=== PATIENT | male | born 1990 | race Caucasian/White ===

== ENCOUNTER 2022-09-03 21:21 | Emergency (ER) | payer SELFPAY ==
[~2022-09-03] VITALS: Ht 165.1 cm; Wt 68.0 kg
[2022-09-03] MEDS ORDERED: KETOROLAC TROMETHAMINE INJ 30 MG/ML VIAL IV ONE (21:30)
[2022-09-03] MEDS ORDERED: MORPHINE SULFATE INJ 2 MG/ML DISP.SYRIN IV ONE (21:30)
--- NOTE | 2022-09-03 21:30 | NUR ---
[id number] FROM [facility] C/O R TIBFIB DEFORMITY FROM [facility]. 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
[2022-09-03] MEDS ORDERED: MORPHINE SULFATE INJ 4 MG/ML DISP.SYRIN ONE (21:31)
[2022-09-03] MEDS ORDERED: KETOROLAC TROMETHAMINE INJ 30 MG/ML VIAL ONE (21:43)
[2022-09-03 22:05] LABS: BASOPHILS % (AUTO) 0.3 % (0.0-2.0); EOSINOPHILS % (AUTO) 0.4 % (0.0-6.0); HEMATOCRIT 45 % (39-51); HEMOGLOBIN 14.9 g/dL (13.5-17.5); LYMPHOCYTES # (AUTO) 1.3 K/uL (0.8-4.8); LYMPHOCYTES % (AUTO) 10.4 % (20.0-44.0); MEAN CORPUSCULAR HGB CONC 33 g/dl (31.0-36.0); MEAN CORPUSCULAR VOLUME 94 fL (80-96); MONOCYTES # (AUTO) 0.6 K/uL (0.1-1.30); MONOCYTES % (AUTO) 4.6 % (2.0-12.0); NEUTROPHILS # (AUTO) 10.5 K/uL (1.8-8.9); NEUTROPHILS % (AUTO) 84.3 % (43.0-81.0); PLATELET COUNT (AUTO) 231 K/uL (150-450); RED BLOOD CELL COUNT(AUTO) 4.81 MIL/uL (4.5-6.0); WHITE BLOOD COUNT (AUTO) 12.5 K/uL (4.3-11.0)
--- NOTE | 2022-09-03 22:17 | NUR ---
DR VEGA ON THE PHONE WITH DR. YAW ALVARADO
[2022-09-03 22:26] LABS: CALCIUM, SERUM 9.2 mg/dL (8.5-10.1)
[2022-09-03] MEDS ORDERED: KETO10TA2 PO (22:48)
[2022-09-03] MEDS ORDERED: HYDR-4209 PO (22:48)
[2022-09-04] MEDS ORDERED: MORPHINE SULFATE INJ 2 MG/ML DISP.SYRIN IV ONE
[2022-09-04] MEDS ORDERED: MORPHINE SULFATE INJ 4 MG/ML DISP.SYRIN ONE (00:10)
--- NOTE | 2022-09-04 00:15 | NUR ---
Patient discharged to home in stable condition. Written and verbal after care instructions given. Patient verbalizes understanding of instruction. IV removed. Catheter intact and site benign. Pressure and 4x4 applied to site. No bleeding noted.
[2022-09-04 00:37] VITALS: BP 101/83; TEMP 98.1; O2SAT 99
== END 2022-09-04 00:20 | disposition home or self-care (01) ==
LOC: ER 21:34
DX: S82.391A Other fracture of lower end of right tibia, initial encounter for closed fracture (principal); S82.491A Other fracture of shaft of right fibula, initial encounter for closed fracture; Z60.2 Problems related to living alone; Z79.899 Other long term (current) drug therapy; X50.1XXA Overexertion from prolonged static or awkward postures, initial encounter; Y93.89 Activity, other specified; Y92.89 Other specified places as the place of occurrence of the external cause; Y99.8 Other external cause status
CPT/HCPCS: 29505; 36415; 71045; 73590; 80048; 85025; 85730; 93005; 96374; 96375; 96376; 99285; J1885; J2270